=== PATIENT | male | born 1940 | race Native Hawaiian/Other Pacific Islander ===

== ENCOUNTER 2020-10-25 06:32 | Day surgery (SDC) | payer MEDICARE ==
[2020-10-22 08:57] VITALS: BMI 22.1
[~2020-10-25 06:32] MED LIST: ACETAMINOPHEN TAB 500 MG TAB PO PRN; HEPARIN SODIUM,PORCINE 5,000 UNIT/ML 1 ML VIAL SQ PRN; LACTATED RINGERS 1,000 ML IV SCH; Pre Op ABX Message 1 EACH MISC MISCELLANE ONE
[2020-10-25] MEDS ORDERED: LIDOCAINE 1% (10MG/ML) FOR IV START INTRADERMA ONE (07:15)
[2020-10-25] MEDS ORDERED: ONDANSETRON 4 MG/2 ML VIAL ONE (07:19)
[2020-10-25] MEDS ORDERED: DEXAMETHASONE SOD PHOSPHATE 4 MG/ML 1 ML VIAL IVP ONE (07:20)
[2020-10-25] MEDS ORDERED: HEPARIN SODIUM,PORCINE/PF 5,000 UNIT/0.5 ML SYRINGE SQ PRN (07:22)
[2020-10-25] MEDS ORDERED: SODIUM CHLORIDE 0.9% 100 ML with ceFAZolin 2,000 MG IV ONE ×2 (07:56)
--- NOTE | 2020-10-25 07:56 | P.GSHP ---
History of Present Illness H&P Date: 10/25/20 Chief Complaint: Metastatic cancer 80-year-old male has a past history of colorectal cancer. Recently found to have lung and liver metastasis. Here today for Port-A-Cath placement. Patient has poor IV access. Starting chemotherapy next week. Patient has lost 60 pounds over the last year or so. Past Medical History Past Medical History: Coronary Artery Disease (CAD), Cancer, COPD, GERD/Reflux, Hyperlipidemia, Hypertension, Renal Disease Additional Past Medical History / Comment(s): Lung with bone metastasis. Dx. with rectal cancer in 2010. Anemia, gets blood transfusions, last one on 10/21/20. History of Any Multi-Drug Resistant Organisms: None Reported Past Surgical History: Appendectomy, Coronary Bypass/CABG, Heart Catheterization With Stent, Hernia Repair, Orthopedic Surgery Additional Past Surgical History / Comment(s): L shoulder surgery with plate, Past Anesthesia/Blood Transfusion Reactions: Postoperative Nausea & Vomiting (PONV) Additional Past Anesthesia/Blood Transfusion Reaction / Comment(s): Takes zofran at home. Date of Last Stent Placement:: 1991 Smoking Status: Former smoker - Past Family History Mother Family Medical History: Cancer Additional Family Medical History / Comment(s): Stomach. Medications and Allergies Home Medications Medication Instructions Recorded Confirmed Type Aspirin 81 mg PO DAILY 10/22/20 10/22/20 History Carvedilol [Coreg] 3.125 mg PO BID 10/22/20 10/22/20 History Doxazosin [Cardura] 2 mg PO HS 10/22/20 10/25/20 History Excedrin-Tylenol 1 tab PO DAILY 10/22/20 10/25/20 History FLUoxetine HCL [PROzac] 40 mg PO DAILY 10/22/20 10/22/20 History LORazepam [Ativan] 1 mg PO DAILY 10/22/20 10/25/20 History Lansoprazole [Prevacid] 30 mg PO DAILY 10/22/20 10/25/20 History Multivitamins, Thera [Multivitamin 1 tab PO DAILY 10/22/20 10/22/20 History (formulary)] Ondansetron [Zofran] 4 mg PO DAILY PRN 10/22/20 10/25/20 History Simvastatin [Zocor] 20 mg PO HS 10/22/20 10/25/20 History amLODIPine [Norvasc] 10 mg PO DAILY 10/22/20 10/22/20 History buPROPion [Wellbutrin] 100 mg PO DAILY 10/22/20 10/22/20 History Allergies Allergy/AdvReac Type Severity Reaction Status Date / Time No Known Allergies Allergy Verified 10/22/20 08:22 Surgical - Exam Vital Signs Temp Pulse Resp BP Pulse Ox 98.0 F 85 18 142/66 95 10/25/20 07:00 10/25/20 07:00 10/25/20 07:00 10/25/20 07:00 10/25/20 07:00 Physical exam: General: Malnourished appearing elderly male in no distress HEENT: Normocephalic, sclerae nonicteric Abdomen: Nontender, nondistended Extremities: No edema Neuro: Alert and oriented Assessment and Plan (1) Metastatic adenocarcinoma Narrative/Plan: Will proceed with Port-A-Cath placement at this time. Risks of bleeding, infection, DVT, pneumothorax, catheter malfunction, anesthesia related complications were discussed. The patient understands and wishes to proceed. Current Visit: Yes Status: Acute Code(s): C79.9 - SECONDARY MALIGNANT NEOPLASM OF UNSPECIFIED SITE SNOMED Code(s): 268696020
[2020-10-25] MEDS ORDERED: HEPARIN SODIUM,PORCINE 100 UNIT/ML 5 ML VIAL IV ONE (08:16)
[2020-10-25] MEDS ORDERED: LIDOCAINE (PF) 10 MG/ML 2 ML VIAL SQ ONE ×2 (08:16)
[2020-10-25] MEDS ORDERED: NALOXONE 0.4 MG/ML 1 ML VIAL IV PRN (08:52)
--- NOTE | 2020-10-25 08:54 | P.OP ---
Date of Procedure: 10/25/20 Procedure(s) Performed: PREOPERATIVE DIAGNOSIS: Metastatic lung cancer POSTOPERATIVE DIAGNOSIS: Same PROCEDURE: Port-A-Cath placement with fluoroscopic and ultrasound guidance SURGEON: Yennifer EBL: Minimal ANESTHESIA: Sedation COMPLICATIONS: None OPERATIVE PROCEDURE: Patient was brought and placed on the operative table in the supine position. The patient was sedated per anesthesia that time. The chest and neck were prepped and draped in usual sterile fashion. The ultrasound probe was used to identify the location of the right internal jugular vein. The skin was localized with lidocaine. The Seldinger needle was advanced into the IJ under ultrasound guidance. The wire was advanced through the needle under fluoroscopic guidance into the superior vena cava. A port pocket was created in the right infraclavicular location. The catheter was tunneled from the wire entrance site to the port pocket. The port was then connected to the catheter. The dilator introducer was threaded over the guidewire. The guidewire and dilator were then removed. The catheter was advanced through the introducer and introducer was then removed. The tip was seen to be in the right atrial junction via fluoroscopy. A picture of the radiograph showing the tip at the radial digital junction was taken. Port was flushed with both saline and a Hep- Lock solution. There was good flow both in and out of the port. The port was sutured in underlying tissues using 3-0 silk sutures. The subcutaneous tissues were reapproximated using 3-0 Vicryl sutures and the skin at both locations using 4-0 Monocryl sutures. Skin glue and sterile dressings then applied. DISPOSITION: Stable to recovery room
[2020-10-25 09:03] VITALS: RESP 16; TEMP 97
--- NOTE | 2020-10-25 09:21 | FL ---
EXAMINATION TYPE: FL guided central line placement DATE OF EXAM: 10/25/2020 FLUOROSCOPY Fluoroscopy time of 39 seconds was used during Port-A-Cath insertion. 2 image/s document/s the [place].
[2020-10-25 09:50] VITALS: BP 126/60; PULSE 76
--- NOTE | 2020-10-25 10:11 | XR ---
EXAMINATION TYPE: XR chest 1V confirm line [facility] DATE OF EXAM: 10/25/2020 COMPARISON: NONE HISTORY: 80-year-old male check line placement TECHNIQUE: Single frontal view of the chest is obtained. FINDINGS: Median sternotomy wires are present post CABG clips in the mediastinum. There is a large left pleural effusion extending up to the upper third left lung level. Diffuse interstitial changes. Some patchy mid and lower lung opacities on the right. Right anterior chest wall injection port with catheter tip at the mid SVC level. IMPRESSION: 1. Right anterior chest wall injection port. Catheter tip at the mid SVC level. 2. Large left pleural effusion with underlying atelectasis and/or consolidation. Diffuse interstitial changes are present and could represent patchy pneumonia or interstitial edema.
== END 2020-10-25 10:20 | disposition home or self-care (01) ==
LOC: OR 06:32
PROVIDERS: ATTEND Surgery
DX: C34.90 Malignant neoplasm of unspecified part of unspecified bronchus or lung (principal); C79.51 Secondary malignant neoplasm of bone; C78.7 Secondary malignant neoplasm of liver and intrahepatic bile duct; D63.0 Anemia in neoplastic disease; I25.10 Atherosclerotic heart disease of native coronary artery without angina pectoris; J44.9 Chronic obstructive pulmonary disease, unspecified; K21.9 Gastro-esophageal reflux disease without esophagitis; E78.5 Hyperlipidemia, unspecified; I10 Essential (primary) hypertension; Z97.2 Presence of dental prosthetic device (complete) (partial); N28.9 Disorder of kidney and ureter, unspecified; F41.0 Panic disorder [episodic paroxysmal anxiety]; Z85.038 Personal history of other malignant neoplasm of large intestine; Z90.49 Acquired absence of other specified parts of digestive tract; Z95.1 Presence of aortocoronary bypass graft; Z95.5 Presence of coronary angioplasty implant and graft; Z98.890 Other specified postprocedural states; Z91.89 Other specified personal risk factors, not elsewhere classified; Z87.891 Personal history of nicotine dependence; Z79.82 Long term (current) use of aspirin; Z79.899 Other long term (current) drug therapy; Z92.21 Personal history of antineoplastic chemotherapy; Z92.3 Personal history of irradiation; Z80.0 Family history of malignant neoplasm of digestive organs
CPT/HCPCS: 77001; 36561; C1788; J2001; J1644; J1642; J1100; J2405; J0690

== ENCOUNTER → 2020-11-04 | Outpatient (CLI) | payer MEDICARE ==
--- NOTE | 2020-11-04 16:10 | MR ---
EXAMINATION TYPE: MR brain wo/w con DATE OF EXAM: 11/04/2020 COMPARISON: NONE HISTORY: Headaches, dizziness, hx lung cancer. TECHNIQUE: Multiplanar, multisequence images of the brain and brainstem is performed without and with IV contras t, utilizing 6.5 mL intravenous Gadavist . FINDINGS: Diffusion weighted images demonstrate no evidence of a recent infarct or other diffusion ab normality. There is mild ventricular and sulcal prominence. Scattered foci of T2 hyperintensity are seen throughout the white matter bilaterally. Approximately 30-40 scattered lesions are seen. Lesions are nonspecific in appearance and distribution. Midline structures demonstrate normal morphology. The craniocervical junction appears within normal limits. Post contrast images demonstrate no abnormal enhancement. The dural venous sinuses appear pa tent. The visualized sinuses are clear and the globes are intact. IMPRESSION: No suspicious enhancing masses to suggest metastatic disease to the brain. Background mil d diffuse cerebral atrophy and mild to moderate chronic small vessel ischemic change noted.
== END | disposition home or self-care (01) ==
LOC: RADMRIMAIN 14:56
PROVIDERS: ATTEND Internal Medicine Hematology & Oncology
DX: I67.82 Cerebral ischemia (principal); G31.9 Degenerative disease of nervous system, unspecified
CPT/HCPCS: 70553; A9585

== ENCOUNTER 2020-11-26 12:52 | Day surgery (SDC) | payer MEDICARE ==
[2020-11-26 13:42] VITALS: TEMP 97.4
--- NOTE | 2020-11-26 15:47 | XR ---
EXAMINATION TYPE: XR chest 1V portable DATE OF EXAM: 11/26/2020 CLINICAL HISTORY: post left thoracentesis. TECHNIQUE: Portable frontal view of the chest. COMPARISON: 10/25/2020 FINDINGS: Right-sided internal jugular MediPort. Sternotomy wires and mediastinal surgical clips. Th ere is a large left pleural effusion obscures the cardiac silhouette, similar to 10/25/2020. There is a focal opacity over the right mid lung which was not seen on 10/25/2020 comparison. Diffuse scattered a irspace opacities. No pneumothorax. IMPRESSION: 1. Large left pleural effusion. No pneumothorax status post left thoracentesis. 2. Focal airspace opacity over the right mid lung, new from 10/25/2020. Findings may represent focal c onsolidation, versus less likely mass given short interval.
[2020-11-26 16:01] VITALS: BP 123/58; PULSE 82; RESP 18
--- NOTE | 2020-11-26 17:45 | US ---
EXAMINATION TYPE: US thoracentesis DATE OF EXAM: 11/26/2020 COMPARISON: Chest radiograph 10/25/2020 HISTORY: Pleural effusion. History of colon cancer. ART FRAMING MANAGER: Dr. Nika Mandujano PROCEDURE: The procedure was discussed with the patient. The risks, complications, benefits, and alternatives we re discussed and any questions were answered. Informed consent was obtained. Preprocedure preliminary imaging demonstrated a large severely loculated and microcystic appearing le ft effusion, as well as a moderate right effusion with significant internal debris likely hemorrhagic fluid. Maximal barrier technique was utilized. The skin overlying a suitable pocket of fluid of the left [address] was localized and the overlying skin prepped and draped. Lidocaine was used for local anesthesia. Ultrasound was used with sterile technique. A 5FR 7 cm ons-step centesis catheter was advanced into t he pleural fluid collection using ultrasound guidance. Approximately 500 mL of brown thick fluid was removed. Catheter was withdrawn and hemostasis achieved. A sterile bandage was applied. Postprocedure imaging demonstrated large residual pleural effusion. There is no immediate complicatio n. The patient reported nausea during and after the procedure. The patient was discharged in stable c ondition without complication. IMPRESSION: 1. Status post ultrasound-guided left thoracentesis, with removal of 500 mL of brown thick fluid. Lar ge pleural collection remains status post procedure. 2. Large left-sided severely loculated pleural effusion with somewhat microcystic appearance. 3. Moderate right pleural effusion with significant internal debris likely hemorrhagic fluid. 4. Postprocedure x-ray demonstrates no pneumothorax.
== END 2020-11-26 15:50 | disposition home or self-care (01) ==
LOC: RADPROMAIN 12:52
PROVIDERS: ATTEND Internal Medicine Hematology & Oncology
DX: J90 Pleural effusion, not elsewhere classified (principal); Z85.038 Personal history of other malignant neoplasm of large intestine
CPT/HCPCS: 32555; 71045